=== PATIENT | male | born 1940 | race Caucasian/White ===

== ENCOUNTER → 2017-12-11 | Outpatient (CLI) | payer MEDICARE, OTHER ==
[~2017-12-11] MED LIST: ACET325 PO; ALBU90OI6 INH; ALBU90OI61 INH; EPIN.3I IM; EYE VITAMIN-MI1 EACH PO; FLONASE ALLERG9.9 ML NS; FLUT.05NI; LEVSOD100 PO; LUTEIN; NAPR500 PO; Pepcid 20 mg Ta20 MG GT; Prednisone20 MG PO; VITAMINS
== END | disposition home or self-care (01) ==
LOC: LAB 02:42 → LAB SHORT 02:42 → LAB FUT 12-09 10:15
PROVIDERS: Internal Medicine
DX: R76.8 Other specified abnormal immunological findings in serum (principal)
CPT/HCPCS: 81050

== ENCOUNTER → 2022-05-05 | Outpatient (CLI) | payer MEDICARE, OTHER ==
[~2022-05-05] MED LIST changes: +ACET500; +ALBU90OI; +ASPIR 8181 MG
== END | disposition home or self-care (01) ==
LOC: LAB 11:00 → LAB SHORT 11:00
DX: L72.3 Sebaceous cyst (principal)
CPT/HCPCS: 87070; 87147; 87205

== ENCOUNTER 2023-04-29 19:46 | Emergency (ER) | payer MEDICARE, OTHER ==
[~2023-04-29] VITALS: Ht 180.3 cm; Wt 81.7 kg
[~2023-04-29 19:46] MED LIST changes: -EUTHYROX125 MC1 PO; -TOCO1000 PO
[2023-04-29 21:06] LABS: Source, Urine Clean Catch
[2023-04-29 21:08] LABS: Bilirubin, Urine Neg (Neg); Blood, Urine 2+ (Neg); Glucose Qualitative, Urine Neg (Neg); Ketones, Urine Neg (Neg); Leukocyte Esterase, Urine Neg (Neg); Nitrite, Urine Neg (Neg); Protein, Urine 1+ (Neg); Urobilinogen, Urine NORM (Normal)
[2023-04-29 21:12] LABS: Appearance, Urine Clear (Clear); Color, Urine Yellow (P-Yellow)
[2023-04-29 21:15] LABS: Bacteria Rare /hpf; Red Blood Cells, Urine 0-2 /hpf (0-2); Squamous Epithelial Cells Rare /hpf (Few); White Blood Cells, Urine 0-2 /hpf (0-5)
[2023-04-29] MEDS ORDERED: EUTHYROX125 MC1 PO (21:24)
[2023-04-29] MEDS ORDERED: TOCO1000 PO (21:24)
[2023-04-29 23:00] VITALS: BP 142/95
== END 2023-04-29 23:00 | disposition home or self-care (01) ==
LOC: ER 19:46
PROVIDERS: Physician Assistant
DX: D72.829 Elevated white blood cell count, unspecified (principal); Z88.0 Allergy status to penicillin; Z88.1 Allergy status to other antibiotic agents; Z88.2 Allergy status to sulfonamides; Z79.899 Other long term (current) drug therapy; Z79.82 Long term (current) use of aspirin; M19.90 Unspecified osteoarthritis, unspecified site; Z87.891 Personal history of nicotine dependence
CPT/HCPCS: 71046; 81001; 83605; 84145; 93005; 93010; 99284-25

== ENCOUNTER → 2023-04-29 | Outpatient (CLI) | payer MEDICARE, OTHER ==
[~2023-04-29] MED LIST changes: +EUTHYROX125 MC1 PO; +TOCO1000 PO
[2023-04-29 15:33] LABS: BASOPHILS ABSOLUTE AUTO 0.05 K/mm3 (0.00-0.23); BASOPHILS PERCENT AUTO 0 % (0-2); EOSINOPHILS PERCENT AUTO 0 % (0-6); Hematocrit 42.6 % (37.0-53.0); Hemoglobin 14.3 g/dL (13.5-17.5); IMMATURE GRAN ABSOLUTE AUTO 0.17 K/mm3 (0.00-0.10); IMMATURE GRAN PERCENT AUTO 1 % (0-1); LYMPHOCYTES ABSOLUTE AUTO 0.98 K/mm3 (0.84-5.20); LYMPHOCYTES PERCENT AUTO 4 % (21-46); MONOCYTES ABSOLUTE AUTO 1.19 K/mm3 (0.16-1.47); MONOCYTES PERCENT AUTO 5 % (4-13); Mean Corpuscular HGB 31.6 pg (26.0-34.0); Mean Corpuscular HGB Conc 33.6 g/dL (31.5-36.5); Mean Corpuscular Volume 94 fL (80-100); Mean Platelet Volume 10.4 fL (9.1-12.4); NEUTROPHILS ABSOLUTE AUTO 22.72 K/mm3 (1.96-9.15); NEUTROPHILS PERCENT AUTO 91 % (41-73); Platelet Count 286 K/mm3 (150-400); RDW Coefficient Variation 13.2 % (11.7-14.2); Red Blood Cell Count 4.52 M/mm3 (4.30-5.90); White Blood Cell Count 25.11 K/mm3 (4.00-11.30)
[2023-04-29 16:23] LABS: Albumin, Blood 4.3 g/dL (3.4-5.0); Albumin/Globulin Ratio 1.2 (0.8-1.8); Bilirubin, Total 0.6 mg/dL (0.1-1.0); Bun/Creatinine Ratio 47.3 (12.0-20.0); Calcium, Blood 9.3 mg/dL (8.5-10.1); Creatinine, Blood 1.1 mg/dL (0.60-1.20); Globulin, Blood 3.5 g/dL (2.2-4.0); Potassium, Blood 4.2 mmol/L (3.5-5.5); Total Protein, Blood 7.8 g/dL (6.4-8.2)
== END ==
LOC: LAB SHORT 11:35
PROVIDERS: Student in an Organized Health Care Education/Training Program
DX: R23.2 Flushing (principal); R82.90 Unspecified abnormal findings in urine
CPT/HCPCS: 80053; 85025; 87086